=== PATIENT | male | born 1965 | race Caucasian/White ===

== ENCOUNTER 2024-06-23 06:10 | Day surgery (SDC) | payer BC, SELFPAY ==
[2024-06-10 13:44] VITALS: BMI 23.7
[2024-06-23] VITALS (10 sets, daily range): BP systolic 96–139; BP diastolic 61–84; BMI 23.7
[2024-06-23] MEDS: TYLENOL 1000 MG PO (06:50)
--- NOTE | 2024-06-23 07:07 | HP.FOC2 ---
Focused History & Physical
Chief Complaint
HPI:
Chief Complaint: Right inguinal hernia
HPI / Indication for Planned Procedure: Patient is a 58-year-old male recently seen in outpatient surgical evaluation secondary to history of right inguinal swelling. Physical examination confirmed the presence of a reducible right inguinal hernia.
No symptoms suggestive of intermittent incarceration or obstruction. Previous history of open left inguinal herniorrhaphy as a child. Presents today for scheduled operative correction
Relevant Past Medical History: Other (Previous history of prostatitis)
Relevant Social History: Negative
Relevant Family History: Negative
Relevant Past Surgical History: Positive for (Left inguinal herniorrhaphy, tonsillectomy, prostate biopsy)
Review of Systems
Review of Pertinent Systems: All Systems Negative
Medication
See Medication form for detailed medications: Yes
Medication List (including Herbals & OTC):
Curapro 1 tab PO DAILY 06/13/24
cholecalciferol (vitamin D3) 25 mcg (1,000 unit) tablet (Vitamin D3) 25 mcg PO DAILY 06/13/24
Medications Reviewed: Yes
Allergies and Reactions
Patient has Allergies: No
Noted Allergies and Reactions:
Allergy/AdvReac Type Severity Reaction Status Date / Time
No Known Allergies Allergy Unverified 06/23/24 06:34
Pertinent Physical Exam
All Other Systems: Negative
Head/Neck: Normal
Lungs: Normal
Heart: Normal
Abdomen: Other (Reducible right inguinal hernia)
Extremities: Normal
Neurological: Normal
Diagnosis / Assessment
58-year-old male presenting for scheduled operative correction symptomatic right inguinal hernia
Plan / Procedure
Robotic assisted laparoscopic repair right inguinal hernia with mesh (phasix)
Anesthesia/Sedation to be done by Anesthesia Provider: Yes
--- NOTE | 2024-06-23 07:09 | W.SUR.PREOP ---
Pre-Operative Surgical Note
-
I have examined this patient prior to the performance of the scheduled procedure.
The patient's condition is unchanged from the time of the current History and
Physical and the patient is able to undergo the scheduled procedure.
--- NOTE | 2024-06-23 09:07 | W.IMMPOSTOP ---
Surgical Immed Post Op Note
-
Primary Surgeon: Richmond Jeff
Assisting Surgeon: Dorita Saldaña PA-C
Pre-op Diagnosis: Right inguinal hernia
Post-op Diagnosis: Right inguinal hernia�indirect
Procedure Performed: Robotic assisted laparoscopic MENA repair right inguinal hernia with mesh; Phasix 10cm x 15cm
Anesthesia Type: GETA +0.25% Marcaine
Specimen / Cultures: None
Estimated Blood Loss: 4 mL
Complications: None immediate
Operative Findings: Right indirect inguinal hernia. No lipoma. Direct and femoral spaces normal. Left inguinal region unremarkable. Transabdominal preperitoneal repair. PHASIX synthetic bioresorbable mesh 10 cm x 15 cm secured with interrupted
2-0 Vicryl suture, no additional incidental findings.
Patient's updated postoperatively via phone call�left message on [employer]
--- NOTE | 2024-06-23 09:10 | OR.RPT ---
Operative Report
Operative Report
Date of operative procedure: 06/23/2024
Primary Surgeon: Richmond Jeff MD
Assisting Surgeon: Dorita Saldaña PA-C
Pre-op Diagnosis: Right inguinal hernia
Post-op Diagnosis: Right inguinal hernia, indirect
Procedure Performed: Robotic assisted laparoscopic MENA repair right inguinal hernia with mesh; Phasix 10cm x 15cm
Anesthesia Type: GETA +0.25% Marcaine
Specimen / Cultures: None/none
Estimated Blood Loss: 4 mL
Complications: None immediate
Indications for operative procedure: Patient is a 58-year-old male recently seen in outpatient surgical evaluation secondary to history of right inguinal swelling. Physical examination confirmed the presence of a reducible right inguinal hernia.
No symptoms suggestive of intermittent incarceration or obstruction. Previous history of open left inguinal herniorrhaphy as a child. After discussions with patient he wished to pursue operative correction. We discussed numerous operative
approaches to repair including open as well as minimally invasive, utilization of permanent prosthetic mesh versus his preference for synthetic resorbable mesh. Please see office visit note for full details regarding consenting process.
Brief summary of operative Findings: Right indirect inguinal hernia. No lipoma of cord structures. Right direct and femoral spaces were normal. Left inguinal region unremarkable. Transabdominal preperitoneal repair. PHASIX synthetic
bioresorbable mesh 10 cm x 15 cm secured with interrupted 2-0 Vicryl suture, no additional incidental findings.
Operation detail: The patient was identified in the preoperative holding area. I confirmed the surgical site and side with the patient preoperatively which was then marked and initialed by myself. He was interviewed by the anesthesia and nursing
staff then brought back to the operating room. The patient was placed on the operating table in supine position. The bilateral upper extremities were carefully padded and tucked at the side utilizing the arm guard positioning system. Pneumatic
compression boots were on the bilateral lower extremities. Following induction of general endotracheal anesthesia the patient was administered Ancef 2 g for prophylactic antibiotic coverage. The patient's anterior abdominal wall was now widely and
sterilely prepped with ChloraPrep and then draped in the usual manner. The surgical timeout was completed and the procedure was confirmed.
I initially proceeded with Veress needle insufflation in the left subcostal midclavicular line location. Once insufflated to 12 mmHg pressure then a left midclavicular line 8 mm trocar was then placed. The robotic scope was inserted, there was no
evidence of iatrogenic injury from access. The Veress needle was withdrawn. An epigastric 8 mm trocar was placed just to the right of the midline. A right midclavicular line 8 mm trocar was placed. The patient was then transition into 14 degrees
Trendelenburg to expose the inguinal/pelvic space and the robot was docked.
At the surgeon console inspection of the pelvis confirmed the presence of a right indirect inguinal hernia. Left inguinal region was unremarkable and without any visible scarring from previous history of left inguinal herniorrhaphy as a child.
There were no additional incidental intra-abdominal findings.
I initially began with creation of a peritoneal flap at the level of the right ASIS to the right medial umbilical ligament. The preperitoneal plane was now established along the length of the flap and developed inferiorly down to the inguinal
space. The medial dissection proceeded until the notch of the pubic symphysis was exposed at the midline followed by Faisal's ligament on the right side. Faisal's ligament was now cleared through the direct and femoral space; both of which were
normal. The underside of Faisal's ligament was exposed as well. The peritoneal flap was now mobilized laterally down to the internal ring. The hernia sac was then grasped and begun to be reduced out of the inguinal canal from an anterior lateral
to anterior medial approach. I carefully continued to reduce the hernia sac off of the cremasteric fibers and cord contents all the way to the apex of the hernia sac. Next the hernia sac was now reduced off of its posterior attachments with
identification of the vas and the spermatic cord vessels. The hernia sac dissection continued back proximally past the turn in the right vas deferens and then overlying the right iliac space to meet up with the medial dissection. The posterior
dissection continued until there was wide separation between the vas and the spermatic cord vessels. The dissection continued posterior laterally for full exposure of the myopectineal orifice.
With the myopectineal orifice now completely exposed hemostasis was confirmed. A PHASIX 15cm x10 cm synthetic resorbable mesh was utilized for repair, as per patient request for nonpermanent mesh product. The mesh was positioned parallel to the
ileopubic tract. It was secured at 2 separate locations inferior medially on Faisal's ligament with 2 simple interrupted 2-0 Vicryl sutures. The mesh covered the myopectineal orifice well. The superior medial corner was slightly trimmed to
accommodate the pocket. The inferior margin of the mesh was kept its full length. Superiorly the mesh was secured with 2 simple interrupted 0 Vicryl sutures placed on either side of the inferior epigastric vessels as the mesh had a bit of memory
and was curling upon itself superiorly in the pocket. An additional single simple interrupted 2-0 Vicryl suture was placed along the superior lateral corner superficially into the transversalis fibers with a air stitch just to lightly secure the
mesh laterally as well for positioning. The patient was now taken out of Trendelenburg to confirm that the posterior aspect of the mesh was lying flat and that there was no shelling or undermining of the mesh by the peritoneal edge. The peritoneal
flap was now closed with a 2-0 Monocryl STRATAFIX spiral suture with a running [place] type stitch. Insufflation pressure was also reduced down to 8 mmHg pressure.
A flexible suction catheter was placed through an 8 mm trocar and introduced into the peritoneal flap to evacuate the air out of the preperitoneal space. This again confirmed good positioning of the inguinal hernia mesh to cover the entire
myopectineal orifice and centered over the indirect space. There was no shelling or folding of the mesh and no undermining and mesh by the peritoneal edge. The peritoneal covering of the mesh was completely intact.
At this point the robot was undocked. All sponge instrument and needle counts were confirmed to be correct x 2. The remaining CO2 insufflation was now carefully evacuated out of the abdominal cavity. The trocar sites were removed as well as the
flexible suction catheter. Skin was closed with 4-0 Monocryl. Sterile surgical glue dressings were applied. The patient tolerated the procedure well and was transferred to the recovery unit for routine postoperative monitoring.
The assistance of Dorita Saldaña PA-C was required due to complexity of surgery. During the procedure Dorita Saldaña PA-C assisted with port placement, robotic instrumentation and suture material exchanges as well as closure of the surgical sites. I
was present for the entirety of the operative procedure.
[2024-06-23] MEDS: DILAUDID 0.5 MG IV (10:11)
[2024-06-23] MEDS: MOTRIN 600 MG PO (11:27)
== END 2024-06-23 11:30 | disposition home or self-care (01) ==
LOC: SDS 06:10
PROVIDERS: ATTENDING PHYSICIAN Surgery; FAMILY PHYSICIAN Family Medicine
DX: K40.90 Unilateral inguinal hernia, without obstruction or gangrene, not specified as recurrent (principal)
CPT/HCPCS: 49650; 36415; 93005